=== PATIENT | male | born 1990 | race Caucasian/White ===

== ENCOUNTER 2025-02-24 23:13 | Emergency (ER) | payer MEDICAID ==
[2025-02-24] MEDS: Sodium Chloride 0.9% 1,000 ML IV SCH (23:15)
[2025-02-24] MEDS: Naloxone 0.4 MG/ML SDV IVPUSH ONE (23:22)
[2025-02-24 23:31] LABS: BASOPHILS ABSOLUTE AUTO 0.13 K/uL (0.00-0.10); BASOPHILS PERCENT AUTO 1.1 % (0.1-1.3); EOSINOPHILS ABSOLUTE AUTO 0.24 K/uL (0.00-0.40); HEMATOCRIT 44.5 % (38.4-49.7); HEMOGLOBIN 15.4 g/dL (12.9-16.9); IMMATURE GRAN ABSOLUTE AUTO 0.03 K/uL (0.00-0.23); IMMATURE GRAN PERCENT AUTO 0.2 % (0.0-0.7); LYMPHOCYTES ABSOLUTE AUTO 4.86 K/uL (0.8-3.3); LYMPHOCYTES PERCENT AUTO 39.5 % (11.4-47.7); MEAN CORPUSCULAR HEMOGLOBIN 30.7 pg (31.6-35.5); MEAN CORPUSCULAR HGB CONC 34.6 g/dL (31.6-35.5); MEAN CORPUSCULAR VOLUME 88.6 fL (81.4-99.0); MONOCYTES ABSOLUTE AUTO 1.62 K/uL (0.20-0.90); MONOCYTES PERCENT AUTO 13.2 % (3.3-12.6); NEUTROPHILS ABSOLUTE AUTO 5.41 K/uL (1.0-7.6); PLATELET COUNT,PLT 271 K/uL (130-375); RED BLOOD CELL COUNT 5.02 M/uL (4.14-5.76); WHITE BLOOD CELL COUNT,WBC 12.3 K/uL (3.2-11.0)
[2025-02-24] MEDS: Naloxone 0.4 MG in Sodium Chloride 0.9% 100 ML IV SCH (23:35)
[2025-02-24] MEDS: Sodium Chloride 0.9% 10 ML Syringe FLUSH PRN (23:39)
[2025-02-24] MEDS: Potassium Chloride 20 MEQ Tab.ER PO SCH (23:44)
[2025-02-24] MEDS: Potassium Chloride 20 MEQ in Premix Bag 1 BAG IV ONE (23:44)
[2025-02-24 23:45] LABS: A/G RATIO 1.2 (1.2-2.2); ALANINE AMINOTRANSFERASE,ALT 22 U/L (12-78); ALBUMIN 3.9 g/dL (3.4-5.0); ALKALINE PHOSPHATASE 108 U/L (46-116); ASPARTATE AMNIOTRANSFERASE,AST 15 U/L (15-37); BILIRUBIN TOTAL 0.3 mg/dL (0.2-1.0); BLOOD UREA NITROGEN,BUN 13 mg/dL (7-18); CALCIUM 9.3 mg/dL (8.5-10.1); CARBON DIOXIDE,CO2 30 mmol/L (21-32); CHLORIDE,CL 102 mmol/L (100-108); CREATININE 1.3 mg/dL (0.8-1.3); EST CRCL DRUG DOSING (CG) 82.69 mL/min; ESTIMATED GFR 75 mL/min (>60); GLUCOSE RANDOM 147 mg/dL (74-106); MAGNESIUM 2.2 mg/dL (1.8-2.4); PROTEIN TOTAL,TP 7.1 g/dL (6.4-8.2); SODIUM,NA 141 mmol/L (140-148); TROPONIN I HIGH SENSITIVITY 4.9 pg/mL (<=60.3)
[2025-02-24 23:47] LABS: ANION GAP 11.8 mmol/L (5.0-14.0); POTASSIUM,K 2.8 mmol/L (3.6-5.2)
[2025-02-24 23:49] LABS: INR 1.2; PROTHROMBIN TIME 12.7 sec (9.2-10.6)
[2025-02-25] MEDS: Ondansetron 4 MG/2 ML SDV IVPUSH ONE (00:44)
[2025-02-25 04:28] LABS: AMPHETAMINES SCREEN, URINE PRESUMPTIVE POSITIVE (NEGATIVE); BARBITURATE SCREEN,URINE NEGATIVE (NEGATIVE); BENZODIAZEPINES SCREEN,URINE NEGATIVE (NEGATIVE); METHADONE SCREEN, URINE NEGATIVE (NEGATIVE); METHAMPHETAMINES SCREEN, URINE PRESUMPTIVE POSITIVE (NEGATIVE); OXYCODONE SCREEN,URINE NEGATIVE (NEGATIVE); PROPOXYPHENE SCREEN,URINE NEGATIVE (NEGATIVE); THC SCREEN,URINE 50 NG/ML PRESUMPTIVE POSITIVE (NEGATIVE)
[2025-02-25] MEDS: Sodium Chloride 0.9% 1,000 ML IV SCH (04:30)
[2025-02-25] MEDS: Naloxone 0.4 MG/ML SDV ONE (11:30)
== END 2025-02-25 11:40 | disposition home or self-care (01) ==
LOC: JP.ED 23:13
DX: T40.411A Poisoning by fentanyl or fentanyl analogs, accidental (unintentional), initial encounter (principal); Z79.899 Other long term (current) drug therapy
CPT/HCPCS: 36415; 80053; 80143; 80179; 80305; 80307; 82140; 82947; 83605; 83690; 83735; 84100; 84484; 85025; 85610; 93005; 93010; 96361; 96365; 96366; 96368; 96374; 96376; 99284; 99285; A9270; J2310; J2405; J3480; J7030; J7040